=== PATIENT | male | born 2000 | race Caucasian/White ===

== ENCOUNTER 2023-04-12 05:36 | Emergency (ER) | payer OTHER, SELFPAY ==
--- NOTE | ~2023-04-12 | XR_ITS ---
Portable chest x-ray Comparison: None Clinical History: Chest pain Findings: Lungs are clear, without focal consolidation or pleural effusion. Cardiomediastinal silho uette is unremarkable. Bones and soft tissues are unremarkable. Impression: Clear lungs. Reviewed, dictated and finalized at location M. R ENGINEER Impression: Clear lungs.
[2023-04-12 05:38] VITALS: BP 148/84; PULSE 109; RESP 16; TEMP 36.6; O2SAT 100
[2023-04-12 05:40] VITALS: PULSE 101
[2023-04-12 06:02] LABS: Basophils Percent Auto 0.4 % (0.2-1.2); Eosinophils Absolute Auto 0.1 K/mm3 (0-0.3); Eosinophils Percent Auto 0.7 % (0-4.4); Hematocrit 43.5 % (42.0-52.0); Hemoglobin 15.2 g/dL (14.0-18.0); Immature Granulocyte Absolute 0.04 K/mm3 (0.00-0.031); Immature Granulocyte Percent A 0.4 % (0-0.5); Lymphocytes Absolute Auto 5.38 K/mm3 (0.9-3.2); Mean Corpuscular HGB Conc 34.9 g/dl (32-36); Mean Platelet Volume 9.9 fl (7.4-10.4); Monocytes Absolute Auto 0.7 K/mm3 (0.1-0.6); Monocytes Percent Auto 6.1 % (2.6-8.5); Neutrophils Absolute Auto 4.6 K/mm3 (1.3-6.7); Neutrophils Percent Auto 42.4 % (45.5-73.1); Platelet Count Result 268 k/mm3 (150-375); Red Blood Count 5.06 M/mm3 (4.6-6.20); Red Cell Distribution Width 12.5 % (11.5-14.5); White Blood Count 10.8 K/mm3 (4.5-10.0)
[2023-04-12 06:12] LABS: Alanine Aminotransferase 29 U/L (6-50); Albumin Level 4.9 g/dL (3.5-5.1); Alkaline Phosphatase 61 U/L (38-126); Anion Gap 12 mmol/L (8-16); Aspartate Amino Transferase 29 U/L (17-59); Bilirubin,Total 0.7 mg/dL (0.2-1.3); Blood Urea Nitrogen 18 mg/dL (9-20); Calcium 9.5 mg/dL (8.4-10.2); Carbon Dioxide 19 mmol/L (22-30); Chloride 105 mmol/L (98-107); Estimated CRCL calculation 124 ml/min; Estimated Glomerular Filt Rate > 60; Glucose 126 mg/dL (65-110); Lipase 43 U/L (23-300); Potassium 3.2 mmol/L (3.4-5.0); Sodium 136 mmol/L (137-145)
[2023-04-12 06:15] VITALS: BP 146/72; PULSE 105; RESP 15; O2SAT 97
[2023-04-12 06:19] LABS: Partial Thromboplastin Time 26.5 SECONDS (22.3-36.8); Prothrombin Time 13.5 Seconds (11.1-14.7)
[2023-04-12 06:22] LABS: Troponin I < 0.012 ng/mL (0.000-0.034)
--- NOTE | 2023-04-12 07:09 | ECG_ITS ---
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
--- NOTE | 2023-04-12 07:09 | ED.ARRPALP ---
HPI - Arrhythmia/Palpitations General Chief Complaint: Arrhythmia/Palpitations Stated Complaint: HEART PALPITATIONS Time Seen by Provider: 04/12/23 07:00 History of Present Illness HPI narrative: Patient is a 22-year-old male who presents emergency department this morning complaining of heart palpitations and racing heart rate that will come up from sleep. Patient admits that he does have a history of anxiety and used to be on Zoloft but once he started to feel better he stopped taking. Patient states that recently he has noticed that he has been more anxious and nervous, which has become his new normal baseline. Patient states that he feels so he just can not relax secondary to this constant anxiousness. He states that his resting heart rate normally runs at around 100. Patient denies any caffeine intake and states that he is trying to drink plenty of fluids. Patient denies any chest pain, shortness of breath, nausea, vomiting, abdominal pain, dysuria, hematuria, constipation, diarrhea, melena, hematochezia, fevers or chills. Patient also denies any headaches, dizziness, lightheadedness, blurry visions, focal weakness, numbness and or tingling. There are no other modifying, alleviating, or precipitating factors at this time. Related Data Home Medications Medication Instructions Recorded Confirmed No Home Medications 04/12/23 Allergies Allergy/AdvReac Type Severity Reaction Status Date / Time No Known Allergies Allergy Verified 04/12/23 05:41 Review of Systems Review of Systems: All systems are reviewed and are negative unless stated otherwise in the HPI. PMFSH Comments Patient admits to a past medical history of anxiety, denies any surgical history, denies any significant or pertinent family history denies any alcohol abuse, illicit drug use, or tobacco use. Exam Narrative: General: Alert, awake, afebrile, in no acute distress, anxious. HEENT: PERRL, no rhinorrhea, no post nasal drip, oropharynx clear. Neck: Trachea midline, no JVD, no lymphadenopathy. Cardiovascular: Tachycardic with regular rhythm, no murmurs, rubs or gallops, no peripheral edema. Respiratory: Clear to auscultation bilaterally, no tachypnea, no wheezing, no rhonchi, no rubs, no respiratory distress. Abdomen: Soft, nontender, nondistended, no rebound, no guarding, no peritoneal signs. Musculoskeletal: No joint swelling or deformity, normal muscle tone. Skin: No rashes or petechia, no signs of infection. Psychiatric: Alert and oriented, normal behavior and judgment for situation. Neurological: Alert and oriented to person, place, and time. Follows all commands. No focal deficits, speech is clear and fluent. Course Vital Signs Vital signs: Vital Signs Temperature 97.9 F 04/12/23 05:38 Pulse Rate 109 H 04/12/23 05:38 Respiratory Rate 16 04/12/23 05:38 Blood Pressure 148/84 H 04/12/23 05:38 Pulse Oximetry 100 04/12/23 05:38 Oxygen Delivery Room Air 04/12/23 05:38 Temperature 97.9 F 04/12/23 05:38 Pulse Rate 101 H 04/12/23 07:38 Respiratory Rate 15 04/12/23 07:38 Blood Pressure 144/85 H 04/12/23 07:38 Pulse Oximetry 96 04/12/23 07:38 Oxygen Delivery Room Air 04/12/23 05:38 MDM - Arrhythmia/Palpitations MDM Narrative Medical decision making narrative: The patient was evaluated by myself in the emergency department. History is obtained from patient who is an independent historian and physical exam was performed. External medical records were reviewed at this time. IV was established and pertinent tests were ordered. Patient states that his palpitations only happen when he is very anxious and states that since he has been here and has had time to come time, the palpitations have resolved. EKG was obtained which revealed sinus tachycardia at a rate of 105. No ST changes, T wave inversions or evidence of acute ischemia. EKG was independently interpreted by me and is currently pending official ca
[2023-04-12 07:20] VITALS: BP 124/66; PULSE 95; RESP 16; O2SAT 98
[2023-04-12] MEDS: POTASSIUM CHLORIDE 20 MEQ ER TABLET 40 MEQ PO (07:23)
[2023-04-12 07:38] VITALS: BP 144/85; PULSE 101; RESP 15; O2SAT 96
[2023-04-12 08:00] LABS: D Dimer < 0.27 ug/mL (<0.48)
[2023-04-12 08:29] LABS: Influenza A QL RT-PCR Negative (Negative); Influenza B QL RT-PCR Negative (Negative); SARS-CoV-2 RNA PCR Negative (Negative)
[2023-04-12 09:08] VITALS: BP 127/70; PULSE 89; RESP 16; TEMP 36.4; O2SAT 99
== END 2023-04-12 09:10 | disposition home or self-care (01) ==
PROVIDERS: Emergency Medicine; Emergency Provider Emergency Medicine
DX: R00.2 Palpitations (principal); E87.6 Hypokalemia; F41.9 Anxiety disorder, unspecified; Z20.822 Contact with and (suspected) exposure to COVID-19
CPT/HCPCS: 36415; 71045; 80053; 83690; 84484; 85025; 85380; 85610; 85730; 87636; 93005; 99284; A9270